=== PATIENT | female | born 1990 | race Caucasian/White ===

== ENCOUNTER 2018-03-27 15:21 | Emergency (ER) | payer MEDICAID ==
[~2018-03-27] VITALS: Ht 137.2 cm; Wt 49.9 kg
[~2018-03-27 15:21] MED LIST: CARI-316; CEPH500C; HYDR-2595; PANTOPRAZOLE 40MG TABLETS; PROPRANOLOL 40 MG; SULF-169
[2018-03-27 15:45] VITALS: BP 125/87
== END 2018-03-27 20:36 | disposition home or self-care (01) ==
LOC: ER 15:27
DX: S13.4XXA Sprain of ligaments of cervical spine, initial encounter (principal); S00.83XA Contusion of other part of head, initial encounter; F17.210 Nicotine dependence, cigarettes, uncomplicated; Z88.8 Allergy status to other drugs, medicaments and biological substances; V49.49XA Driver injured in collision with other motor vehicles in traffic accident, initial encounter; Y93.89 Activity, other specified; Y99.8 Other external cause status; Y92.488 Other paved roadways as the place of occurrence of the external cause
CPT/HCPCS: 70450

== ENCOUNTER 2019-01-05 00:04 | Emergency (ER) | payer MEDICAID ==
[~2019-01-05] VITALS: Ht 137.2 cm; Wt 44.7 kg
[~2019-01-05 00:04] MED LIST changes: -CARI-316; +CARI350T22
[2019-01-05 01:14] LABS: Urine Pregnacy Test Negative (Negative)
[2019-01-05 01:25] LABS: Urine Bacteria FEW /hpf (None Seen); Urine Blood Negative /uL (Negative); Urine Mucus FEW (None Seen); Urine Specific Gravity 1.028 (1.001-1.035); Urine WBC 17 /hpf (0 - 5)
[2019-01-05 01:28] LABS: Amphetamine Screen, Urine POSITIVE (NEGATIVE); Barbiturate Scree,Urine NEGATIVE (NEGATIVE); Benzodiazephine Screen, Urine NEGATIVE (NEGATIVE); Cannabinoid Screen, Urine POSITIVE (NEGATIVE); Cocaine Screen, Urine NEGATIVE (NEGATIVE); Opiate Scree,Urine NEGATIVE (NEGATIVE); Phencyclidine Screen, Urine NEGATIVE (NEGATIVE)
[2019-01-05 04:28] LABS: Basophils # (auto) 0.1 uL; Basophils % (auto) 0.8 % (0.0-2.0); Eosinophils # (auto) 0.2 uL; Hematocrit 33.2 % (36.0-46.0); Hemoglobin 10.9 g/dL (12.2-16.2); Lymphocytes # (auto) 2.3 uL; Lymphocytes % (auto) 33.3 % (10.0-50.0); Mean Corpuscular Hemoglobin 31.5 pg (28.0-32.0); Mean Corpuscular Hgb Conc. 32.8 g/dL (32.0-36.0); Mean Corpuscular Volume 96.1 fL (80.0-100.0); Monocytes # (auto) 0.6 uL; Monocytes % (auto) 8.9 % (0.0-12.0); Neutrophils # (auto) 3.8 uL; Nucleated Red Blood Cells % 0.1 %; Platelet Count (auto) 363 10^3/uL (140-450); Red Blood Cells 3.45 10^6/uL (4.0-5.20); Red Cell Distribution Width 13.1 % (11.8-14.3)
[2019-01-05 04:46] LABS: Alanine Aminotransferase 118 U/L (13-56); Aspartate Aminotransferase 106 U/L (15-37); BUN/Creatinine Ratio 22.4; Blood Urea Nitrogen 13 mg/dL (7-18); Calcium 8.3 mg/dL (8.5-10.1); Carbon Dioxide 20 mmol/L (21-32); GFR African American 158 mL/min; GFR Non-African American 131 mL/min; Glucose 143 mg/dL (74-106)
[2019-01-05 04:49] LABS: Alkaline Phosphatase 103 U/L (45-117); Bilirubin, Total 0.3 mg/dL (0.2-1.0); Total Protein 7.4 g/dL (6.4-8.2)
[2019-01-05 05:11] LABS: Sodium 141 mmol/L (136-145)
[2019-01-05 05:12] LABS: Anion Gap 12 (5-15); Chloride 109 mmol/L (98-107)
[2019-01-05 05:26] LABS: Salicylate 2.4 mg/dL (2.8-20.0)
[2019-01-05 05:31] LABS: Acetaminophen < 2.0 ug/mL (10-30)
[2019-01-05] MEDS ORDERED: ACETAMINOPHEN 500 MG TAB PO ONE ×2 (13:24→14:15)
[2019-01-05] MEDS ORDERED: MULTIPLE VITAMIN 10 ML, MAGNESIUM SULF SDV 50% 8 MEQ, THIAMINE INJ 100 MG in SODIUM CHL... IV ONE (15:30)
[2019-01-05] MEDS ORDERED: LORazepam 2MG/ML-1ML VIAL IV ONE (15:30)
[2019-01-05] MEDS ORDERED: SODIUM CHLORIDE 0.9% 1,000 ML IV ONE (15:30)
[2019-01-06 19:25] VITALS: BP 117/77
== END 2019-01-07 00:17 | disposition home or self-care (01) ==
LOC: ER 00:05
DX: F31.9 Bipolar disorder, unspecified (principal); F15.10 Other stimulant abuse, uncomplicated; F12.10 Cannabis abuse, uncomplicated; F10.10 Alcohol abuse, uncomplicated; M35.3 Polymyalgia rheumatica; E46 Unspecified protein-calorie malnutrition; M85.80 Other specified disorders of bone density and structure, unspecified site; Z68.23 Body mass index [BMI] 23.0-23.9, adult; Y08.89XA Assault by other specified means, initial encounter; Y93.89 Activity, other specified; Y99.8 Other external cause status; Y92.89 Other specified places as the place of occurrence of the external cause
CPT/HCPCS: 36415; 70450; 70486; 71045; 72125; 73080; 74176; 80053; 80307; 80320; 80329; 81001; 81025; 85025; 96365; 96366; 96375; 99284; J2060; J3411; J3475; J7030